=== PATIENT | female | born 1960 | race Caucasian/White ===

== ENCOUNTER 2016-11-14 00:07 | Observation (INO) | payer OTHER ==
[~2016-11-14] VITALS: Ht 162.6 cm; Wt 68.5 kg
[~2016-11-14 00:07] MED LIST: AUGMENTIN875 MG PO; BACTRIM,SEPT1 TABLET PO; FLEXERIL10 MG PO; INDOCIN25 MG PO; LIDOCAINE20 MG/1 M5 PO; MOTRIN400 MG PO; MOTRIN600 MG PO; NAPROXEN500 MG PO; NOHOMEMEDS; NORCO 5/3251 TABLET PO; PEN-VEE K,VEET500 MG PO; PERCOCET 5/31 TABLET PO; SILVADENE20 GM TP; SUDAFED 12-HOU120 MG PO; ULTRACET1 TABLET PO; ULTRAM50 MG PO; VICODIN 5-3001 EACH PO; ZANTAC150 MG PO; ZOFRAN ODT4 MG PO
[2016-11-14 00:33] LABS: HEMATOCRIT 37.8 % (36.0-46.0); MCH 29.4 PG (29.0-34.0); MCHC 32.5 G/DL (30.0-36.0); MCV 90.4 FL (83-99); MEAN PLAT.VOLUME 9.4 uM^3 (9.5-12.4); PLATELET COUNT 302 K/uL (156-360); RBC DIS.WIDTH-CV 12.3 % (11.8-14.6); RBC DIS.WIDTH-SD 39.8 % (39-53); RED BLOOD COUNT 4.18 M/uL (3.80-5.20); WHITE BLOOD COUNT 7.4 K/uL (4.1-10.2)
[2016-11-14 00:45] LABS: CHLORIDE 108 mEq/L (99-109); POTASSIUM 3.6 mEq/L (3.7-5.4); SODIUM 141 mEq/L (136-147)
[2016-11-14 00:46] LABS: GLUCOSE 97 mg/dL (70-99)
[2016-11-14 00:48] LABS: ANION GAP 8 MEQ/L (2-14)
[2016-11-14 00:50] LABS: GFR ESTIMATE (CALCULATED) > 59 mL/min/
[2016-11-14 00:51] LABS: UREA NITROGEN (BUN) 20 mg/dL (9-23)
[2016-11-14 00:55] LABS: TROP-I INTERPRETATION NEGATIVE; TROPONIN-I < 0.01 ng/mL (0.0-0.30)
[2016-11-14 02:13] VITALS: BP 162/95
[2016-11-14 02:23] LABS: HDL CHOLESTEROL 54 MG/DL (Desirable>=50); LDL CHOLESTEROL 70 mg/dL (Desirable<100); NON-HDL CHOLESTEROL 82 mg/dL (Desirable<160); TOTAL CHOLESTEROL 136 mg/dL (Desirable<200); TRIGLYCERIDES 60 MG/DL (Normal: <150)
[2016-11-14 03:51] LABS: ADD MIUA? YES; BILIRUBIN NEGATIVE; BLOOD NEGATIVE; COLOR YELLOW ((YELLOW)); GLUCOSE (STRIP) NEGATIVE; KETONES NEGATIVE; LEUKOCYTES NEGATIVE; NITRITE NEGATIVE; PROTEIN (STRIP) NEGATIVE; SPECIFIC GRAVITY 1.014 (1.000-1.030); UROBILINOGEN 0.2 MG/DL (0.2-1.0)
[2016-11-14 03:56] LABS: AMPHETAMINES QUANT VALUE 0 NG/ML; BARBITUATES QUANT VALUE 0 NG/ML; BENZODIAZEPINES QUANT VALUE 0 NG/ML; BENZODIAZEPINES, URINE SCREEN Negative (200 ng/mL); MARIJUANA QUANT VALUE 0 NG/ML; OPIATES QUANTITATIVE VALUE 0 NG/ML; PHENCYCLIDINE QUANT VALUE 0 NG/ML
[2016-11-14 04:16] LABS: BACTERIA NONE SEEN /HPF; EPITHELIAL CELLS NONE SEEN /HPF; MUCUS NONE SEEN /LPF; RED BLOOD CELLS 30-40 /HPF (0-5); UCUL ADDED? NO
[2016-11-14 05:29] VITALS: BP 132/91
[2016-11-14 08:49] LABS: TROP-I INTERPRETATION NEGATIVE; TROPONIN-I < 0.01 ng/mL (0.0-0.30)
[2016-11-14] MEDS ORDERED: MAG-AL PLUS SUS30 ML PO (10:01)
[2016-11-14] MEDS ORDERED: NITROSTAT0.4 MG SL (10:01)
[2016-11-14] MEDS ORDERED: ASPIR-LOW81 MG PO (10:01)
[2016-11-14 11:26] VITALS: BP 123/80
[2016-11-14 13:12] LABS: TROP-I INTERPRETATION NEGATIVE; TROPONIN-I < 0.01 ng/mL (0.0-0.30)
== END 2016-11-14 14:18 | disposition home or self-care (01) ==
LOC: EME 00:07 → EDOF 01:12 → 5WEST 02:11
PROVIDERS: Hospitalist; Physician Assistant Medical
DX: R07.89 Other chest pain (principal); I10 Essential (primary) hypertension; E87.6 Hypokalemia
CPT/HCPCS: 71020; 80048; 80061; 80306 90; 81003; 84484; 85027; 93005; 99281; 99285; G0378; J1200; J1650; J1885

== ENCOUNTER 2016-12-06 16:59 | Emergency (ER) | payer OTHER ==
[~2016-12-06] VITALS: Ht 162.6 cm; Wt 69.4 kg
[~2016-12-06 16:59] MED LIST changes: +ASPIR-LOW81 MG PO; +MAG-AL PLUS SUS30 ML PO; +NITROSTAT0.4 MG SL
[2016-12-06] MEDS ORDERED: AMOXICILLIN500 M1 PO (19:03)
[2016-12-06] MEDS ORDERED: NORCO 5/3251 TABLET PO (19:03)
[2016-12-06 19:25] VITALS: BP 176/78
[2016-12-07] MEDS ORDERED: MOTRIN800 MG PO (08:47)
== END 2016-12-06 19:26 | disposition home or self-care (01) ==
LOC: EME 16:59
DX: K08.89 Other specified disorders of teeth and supporting structures (principal); K02.9 Dental caries, unspecified
CPT/HCPCS: 99281; 99283

== ENCOUNTER 2016-12-07 06:55 | Emergency (ER) | payer OTHER ==
[~2016-12-07] VITALS: Ht 162.6 cm; Wt 69.4 kg
[~2016-12-07 06:55] MED LIST changes: +AMOXICILLIN500 M1 PO
[2016-12-07 08:01] LABS: EOSINOPHIL (%) 0.3 % (0-5); HEMATOCRIT 38.3 % (36.0-46.0); IMMATURE GRANULOCYTE (%) 0.5 % (0.0-0.7); IMMATURE GRANULOCYTE COUNT 0.1 K/uL; INSTRUMENT ABS NEUTROPHIL CT 10.4 K/uL; LYMPHOCYTE COUNT 1.8 K/uL (1.0-2.8); MCH 29.4 PG (29.0-34.0); MCHC 32.1 G/DL (30.0-36.0); MCV 91.4 FL (83-99); MEAN PLAT.VOLUME 9.2 uM^3 (9.5-12.4); MONOCYTE (%) 6.1 % (3-12); MONOCYTE COUNT 0.8 K/uL (0-0.8); NEUTROPHIL COUNT 10.4 K/uL (1.8-6.4); PLATELET COUNT 290 K/uL (156-360); RBC DIS.WIDTH-CV 12.4 % (11.8-14.6); RBC DIS.WIDTH-SD 41.5 % (39-53); RED BLOOD COUNT 4.19 M/uL (3.80-5.20)
[2016-12-07 08:03] LABS: WHITE BLOOD COUNT 13.2 K/uL (4.1-10.2)
[2016-12-07 08:25] LABS: ANION GAP 8 MEQ/L (2-14); CHLORIDE 103 MEQ/L (99-109); POTASSIUM 4.1 MEQ/L (3.7-5.4); SAMPLE HEMOLYSIS CHECK 0; SAMPLE ICTERIC CHECK 0; SAMPLE LIPEMIA CHECK 0; SODIUM 138 MEQ/L (136-147)
[2016-12-07 08:31] LABS: GFR ESTIMATE (CALCULATED) > 59 mL/min/; GLUCOSE 128 mg/dL (70-99); UREA NITROGEN (BUN) 12 mg/dL (9-23)
[2016-12-07] MEDS ORDERED: MOTRIN800 MG PO (08:47)
[2016-12-07 09:57] VITALS: BP 159/105
== END 2016-12-07 09:56 | disposition home or self-care (01) ==
LOC: EME 06:55
PROVIDERS: Emergency Medicine
DX: R42 Dizziness and giddiness (principal); K04.7 Periapical abscess without sinus; Z85.43 Personal history of malignant neoplasm of ovary
CPT/HCPCS: 70450; 80048; 85025; 93005; 99281; 99285; J2405; J7030

== ENCOUNTER 2017-02-28 23:12 | Emergency (ER) | payer OTHER ==
[~2017-02-28] VITALS: Ht 162.6 cm; Wt 67.3 kg
[~2017-02-28 23:12] MED LIST changes: +MOTRIN800 MG PO
[2017-02-28 23:22] VITALS: BP 158/96
[2017-03-01] MEDS ORDERED: LIDOCAINE20 MG/1 M5 PO (00:45)
[2017-03-01] MEDS ORDERED: INDOCIN25 MG PO (00:45)
[2017-03-01] MEDS ORDERED: CLINDAMYCIN HC300 MG PO (00:45)
== END 2017-03-01 01:01 | disposition home or self-care (01) ==
LOC: EME 23:12
DX: K02.9 Dental caries, unspecified (principal); K04.7 Periapical abscess without sinus
CPT/HCPCS: 99281; 99284

== ENCOUNTER 2017-09-28 18:30 | Emergency (ER) | payer OTHER ==
[~2017-09-28] VITALS: Ht 162.6 cm; Wt 68.4 kg
[~2017-09-28 18:30] MED LIST changes: +CLINDAMYCIN HC300 MG PO
[2017-09-28 21:17] VITALS: BP 140/86
== END 2017-09-28 21:18 | disposition home or self-care (01) ==
LOC: EME 18:30
DX: G44.209 Tension-type headache, unspecified, not intractable (principal); M54.12 Radiculopathy, cervical region; I10 Essential (primary) hypertension; Z85.43 Personal history of malignant neoplasm of ovary; Z88.6 Allergy status to analgesic agent
CPT/HCPCS: 93005; 99281; 99283

== ENCOUNTER 2017-10-15 18:10 | Emergency (ER) | payer OTHER ==
[~2017-10-15] VITALS: Ht 162.6 cm; Wt 67.5 kg
[2017-10-15 18:42] LABS: HEMATOCRIT 37.7 % (36.0-46.0); HEMOGLOBIN 12.6 G/DL (11.9-15.5); MCH 30.3 PG (29.0-34.0); MCHC 33.4 G/DL (30.0-36.0); MCV 90.6 FL (83-99); PLATELET COUNT 235 K/uL (156-360); RBC DIS.WIDTH-CV 12.4 % (11.8-14.6); RED BLOOD COUNT 4.16 M/uL (3.80-5.20); WHITE BLOOD COUNT 11.6 K/uL (4.1-10.2)
[2017-10-15 18:51] LABS: CHLORIDE 104 mEq/L (99-109); POTASSIUM 3.7 mEq/L (3.7-5.4); SODIUM 138 mEq/L (136-147)
[2017-10-15 18:52] LABS: GLUCOSE 146 mg/dL (70-99)
[2017-10-15 18:56] LABS: GFR ESTIMATE (CALCULATED) > 59 mL/min/
[2017-10-15 18:57] LABS: UREA NITROGEN (BUN) 15 mg/dL (9-23)
[2017-10-15 19:03] LABS: TROP-I INTERPRETATION NEGATIVE; TROPONIN-I < 0.01 ng/mL (0.0-0.30)
[2017-10-15 19:33] VITALS: BP 134/89
== END 2017-10-15 22:13 | disposition left against medical advice (07) ==
LOC: EME 18:10
PROVIDERS: Physician Assistant
DX: R07.9 Chest pain, unspecified (principal); Z53.20 Procedure and treatment not carried out because of patient's decision for unspecified reasons; Z88.6 Allergy status to analgesic agent
CPT/HCPCS: 71046; 80048; 84484; 85027; 87502; 93005; 99281; 99284

== ENCOUNTER 2017-11-23 10:15 | Emergency (ER) | payer OTHER ==
[~2017-11-23] VITALS: Ht 162.6 cm; Wt 71.6 kg
[2017-11-23] MEDS ORDERED: TRAMADOL HCL50 MG PO (10:58)
[2017-11-23 11:22] VITALS: BP 138/88
== END 2017-11-23 11:23 | disposition home or self-care (01) ==
LOC: EME 10:15
DX: S20.219A Contusion of unspecified front wall of thorax, initial encounter (principal); M25.512 Pain in left shoulder; W10.9XXA Fall (on) (from) unspecified stairs and steps, initial encounter; Z88.6 Allergy status to analgesic agent

== ENCOUNTER 2018-03-12 01:36 | Emergency (ER) | payer OTHER ==
[~2018-03-12] VITALS: Ht 162.6 cm; Wt 71.0 kg
[~2018-03-12 01:36] MED LIST changes: +TRAMADOL HCL50 MG PO
[2018-03-12] MEDS ORDERED: AMOXICILLIN500 MG PO (02:50)
[2018-03-12 03:24] VITALS: BP 155/98
== END 2018-03-12 03:25 | disposition home or self-care (01) ==
LOC: EME 01:36
DX: R68.84 Jaw pain (principal); K02.9 Dental caries, unspecified; R59.1 Generalized enlarged lymph nodes; Z85.43 Personal history of malignant neoplasm of ovary; Z88.6 Allergy status to analgesic agent
CPT/HCPCS: 99281; 99283

== ENCOUNTER 2018-03-20 20:30 | Emergency (ER) | payer OTHER ==
[~2018-03-20] VITALS: Ht 162.6 cm; Wt 72.4 kg
[~2018-03-20 20:30] MED LIST changes: +AMOXICILLIN500 MG PO
[2018-03-20 21:11] VITALS: BP 163/98
== END 2018-03-21 00:16 | disposition home or self-care (01) ==
LOC: EME 20:30
DX: S06.0X0A Concussion without loss of consciousness, initial encounter (principal); W22.8XXA Striking against or struck by other objects, initial encounter; Z85.43 Personal history of malignant neoplasm of ovary; Z90.721 Acquired absence of ovaries, unilateral
CPT/HCPCS: 70450; 99281; 99283